=== PATIENT | female | born 1945 | race Caucasian/White ===

== ENCOUNTER → 2017-06-18 | Outpatient (CLI) | payer OTHER ==
[~2017-06-18] MED LIST: ALLO100T PO; ASPI81TA85 PO; HYDR12.56 PO; IBUPOTC PO; INVO100T PO; JANU100T PO; LISI5TAB PO; METF1000 PO; PREMARIN PO; PROBCAP4 PO; VITA10002 PO; VITA500047 PO; tylen; tylenol PO
[2017-06-18 13:01] LABS: URIC ACID 6.1 MG/DL (2.6-6.0)
== END ==
LOC: M WUC 10:32
PROVIDERS: ATTEND Nurse Practitioner Family
DX: E55.9 Vitamin D deficiency, unspecified (principal); M10.9 Gout, unspecified

== ENCOUNTER → 2017-11-10 | Outpatient (REF) | payer OTHER ==
[2017-11-10 14:11] LABS: APPEARANCE, URINE HAZY (CLEAR); BACTERIA, URINE AUTO 2+ (NEGATIVE); BILIRUBIN, URINE AUTO NEGATIVE (NEGATIVE); BLOOD, URINE BLOOD 1+ (NEGATIVE); COLOR, URINE YELLOW (YELLOW); GLUCOSE, URINE (UA) AUTO NEGATIVE (NEGATIVE); KETONE, URINE AUTO NEGATIVE (NEGATIVE); LEUKOCYTE ESTERASE, URINE AUTO 2+ (NEGATIVE); NITRITE, URINE AUTO NEGATIVE (NEGATIVE); PROTEIN, URINE AUTO NEGATIVE (NEGATIVE); RBC, URINE AUTO 6 /HPF (0-3); SPECIFIC GRAVITY URINE AUTO 1.011 (1.002-1.035); SQUAMOUS EPITHELIAL CELL UR AU 0 /HPF (0-6); UROBILINOGEN, URINE AUTO 0.2 mg/dL (0.0-2.0); WBC, URINE AUTO 74 /HPF (0-3)
== END ==
LOC: M LAB REF 13:07
DX: R39.89 Other symptoms and signs involving the genitourinary system (principal)
CPT/HCPCS: 81001

== ENCOUNTER → 2018-05-26 | Outpatient (CLI) | payer OTHER | LOC: M WHC 09:54 | DX: M81.0 Age-related osteoporosis without current pathological fracture (principal); Z78.0 Asymptomatic menopausal state | CPT/HCPCS: 77080 ==

== ENCOUNTER → 2019-07-21 | Outpatient (REF) | payer MEDICARE ==
[2019-07-21 11:56] LABS: BASO # 0.1 10^3/uL (0.0-0.2); BASO % 1.5 % (0.0-1.0); EOS # 0.6 10^3/uL (0.0-0.5); EOS % 8.5 % (0.0-3.0); HEMATOCRIT 45.6 % (36.0-47.0); HEMOGLOBIN 14.3 g/dl (12.0-15.5); LYMPH # 2.2 10^3/uL (1.5-5.0); MEAN CORPUSCULAR HEMOGLOBIN 29.8 pg (27.0-33.0); MEAN CORPUSCULAR HGB CONC 31.4 g/dl (32.0-36.5); MONO # 0.7 10^3/uL (0.0-0.8); NEUTROPHILS # 3.1 10^3/uL (1.5-8.5); NEUTROPHILS % 45.8 % (36.0-66.0); PLATELET COUNT, AUTOMATED 231 10^3/uL (150-450); WHITE BLOOD COUNT 6.7 10^3/uL (4.0-10.0)
[2019-07-21 12:40] LABS: ALBUMIN 3.8 GM/DL (3.2-5.2); ALT/SGPT 45 U/L (12-78); BILIRUBIN,TOTAL 0.4 MG/DL (0.2-1.0); BLOOD UREA NITROGEN 18 MG/DL (7-18); CARBON DIOXIDE LEVEL 30 MEQ/L (21-32); CHLORIDE LEVEL 104 MEQ/L (98-107); CHOLESTEROL LEVEL 178 MG/DL (<200); CHOLESTEROL RISK RATIO 4.684 (<5); FREE T4 1.01 NG/DL (0.76-1.46); GLOMERULAR FILTRATION RATE > 60.0 (>39); GLUCOSE, FASTING 134 MG/DL (70-100); HDL CHOLESTEROL 38 MG/DL (>40); LDL CHOLESTEROL 75 MG/DL (<100); NON-HDL-C 140 MG/DL; POTASSIUM SERUM 4.2 MEQ/L (3.5-5.1); SODIUM LEVEL 140 MEQ/L (136-145); TOTAL PROTEIN 7.7 GM/DL (6.4-8.2); TRIGLYCERIDES LEVEL 327 MG/DL (<150)
[2019-07-21 12:51] LABS: HEMOGLOBIN A1c 7.1 %
== END ==
LOC: M SFHCPLAZ 09:49
PROVIDERS: ATTEND Physician Assistant Medical
DX: E11.9 Type 2 diabetes mellitus without complications (principal); Z13.220 Encounter for screening for lipoid disorders; I10 Essential (primary) hypertension; E66.09 Other obesity due to excess calories
CPT/HCPCS: 36415; 80053; 80061; 83036; 84439; 84443; 85025; G0463

== ENCOUNTER → 2020-01-26 | Outpatient (REF) | payer MEDICARE ==
[2020-01-26 13:45] LABS: ALBUMIN 3.9 GM/DL (3.2-5.2); ALT/SGPT 41 U/L (12-78); BILIRUBIN,TOTAL 0.4 MG/DL (0.2-1.0); BLOOD UREA NITROGEN 20 MG/DL (7-18); CALCIUM LEVEL 9.2 MG/DL (8.8-10.2); CARBON DIOXIDE LEVEL 30 MEQ/L (21-32); CHLORIDE LEVEL 105 MEQ/L (98-107); CREATININE FOR GFR 0.89 MG/DL (0.55-1.30); GLOMERULAR FILTRATION RATE > 60.0 (>39); GLUCOSE, FASTING 91 MG/DL (70-100); POTASSIUM SERUM 4.8 MEQ/L (3.5-5.1); SODIUM LEVEL 141 MEQ/L (136-145); TOTAL PROTEIN 7.6 GM/DL (6.4-8.2); URIC ACID 4.9 MG/DL (2.6-6.0)
[2020-01-26 14:28] LABS: CREATININE, URINE 24.5 MG/DL; MALB URINE SIEMENS 11.7 MG/L; MAU/CREAT RATIO 47.7 MCG/MG (0.0-30.0)
[2020-01-26 14:30] LABS: HIV 1&2 SCREEN CENTAUR NEGATIVE (NEGATIVE)
[2020-01-26 14:56] LABS: CHLAMYDIA DNA AMPLIFICATION NEGATIVE (NEGATIVE); GC DNA AMPLIFICATION NEGATIVE (NEGATIVE)
[2020-01-26 15:54] LABS: HEMOGLOBIN A1c 7.6 %
== END ==
LOC: M SFHCPLAZ 11:25
PROVIDERS: ATTEND Physician Assistant
DX: E11.9 Type 2 diabetes mellitus without complications (principal); M10.9 Gout, unspecified; Z20.2 Contact with and (suspected) exposure to infections with a predominantly sexual mode of transmission; Z11.59 Encounter for screening for other viral diseases
CPT/HCPCS: 36415; 80053; 82043; 83036; 84550; 86780; 87389; 87661; G0472

== ENCOUNTER → 2020-02-06 | Outpatient (CLI) | payer MEDICARE ==
--- NOTE | 2020-02-07 04:24 | REP ---
Clinical: Family history of polycystic kidney disease. Technique: Real time giles scale ultrasound examination using curved array transducer. Findings: Bilateral kidneys are normal in contour, size, echogenicity, vascularity and reniform shape. No hydronephrosis, nephrolithiasis, polycystic changes, or mass lesion. Right kidney measures 11.9 x 6.2 x 4.3 cm (RI 0.65) without cystic changes. Left kidney measures 9.8 x 5.2 x 5.2 cm (RI 0.58) and includes 2.0 cm mid pole cortical simple cyst. Impression: 1. 2 cm solitary left renal cyst. 2. Otherwise unremarkable renal ultrasound.
== END ==
LOC: M PLAIMG 09:21
PROVIDERS: ATTEND Physician Assistant
DX: N28.1 Cyst of kidney, acquired (principal); Z82.71 Family history of polycystic kidney

== ENCOUNTER → 2020-08-27 | Outpatient (CLI) | payer MEDICARE ==
--- NOTE | 2020-08-27 12:24 | REP ---
INDICATION: LLE SWELLING. COMPARISON: None. TECHNIQUE: Multiple duplex ultrasound images of the left lower extremity deep veins. FINDINGS: The deep veins demonstrate normal compression, normal Doppler color flow and normal Doppler waveforms with respiration and augmentation multiple levels from the popliteal vein to the common femoral vein. IMPRESSION: There is no evidence of left lower extremity deep vein thrombus. <Electronically signed by Mathew Ramsay > 08/27/20 1616
== END ==
LOC: M RAD 11:25
PROVIDERS: ATTEND Physician Assistant
DX: M79.89 Other specified soft tissue disorders (principal)

== ENCOUNTER 2020-11-29 16:16 | Emergency (ER) | payer MEDICARE ==
[~2020-11-29] VITALS: Ht 167.6 cm; Wt 88.9 kg
--- NOTE | 2020-11-29 17:56 | REPVR ---
PROCEDURE INFORMATION: Exam: US Duplex Left Lower Extremity Veins, Limited Exam date and time: 11/29/2020 5:02 PM Age: 75 years old Clinical indication: Pain; Leg, upper; Left; Additional info: Left thigh pain and swelling, R/O dvt TECHNIQUE: Imaging protocol: Real-time Duplex ultrasound of the Left Lower Extremity with 2-D giles scale, color Doppler flow and spectral waveform analysis with image documentation. Limited exam focused on the left lower extremity veins. COMPARISON: US Duplex, Ext,LOWER veins,unilat 08/27/2020 11:46 AM FINDINGS: Left deep veins: Unremarkable. The common femoral, femoral, proximal profunda femoral and popliteal veins are patent without thrombus. Normal Doppler waveforms. Normal compressibility and/or augmentation response. Left superficial veins: Saphenofemoral junction is patent without thrombus. There is dilatation of the greater saphenous vein and reflux is demonstrated with Valsalva maneuver. There are collaterals left medial geniculate without thrombus. Soft tissues: Unremarkable. IMPRESSION: No evidence of deep vein thrombosis. There is dilatation of the greater saphenous vein and reflux is demonstrated with Valsalva maneuver. There are collaterals left medial geniculate without thrombus. Electronically signed by: Ronda Desir On 11/29/2020 17:56:48 PM
[2020-11-29 18:11] VITALS: BP 157/80
== END 2020-11-29 18:35 | disposition home or self-care (01) ==
LOC: M ED 16:16
DX: I83.813 Varicose veins of bilateral lower extremities with pain (principal); M19.90 Unspecified osteoarthritis, unspecified site; I10 Essential (primary) hypertension; E11.9 Type 2 diabetes mellitus without complications; M10.9 Gout, unspecified; Z88.0 Allergy status to penicillin; Z79.899 Other long term (current) drug therapy; Z79.82 Long term (current) use of aspirin; Z79.84 Long term (current) use of oral hypoglycemic drugs

== ENCOUNTER → 2021-02-25 | Outpatient (REF) | payer MEDICARE ==
[2021-02-25 16:42] LABS: HEMATOCRIT 43.8 % (36.0-47.0); HEMOGLOBIN 13.5 g/dl (12.0-15.5); MEAN CORPUSCULAR HGB CONC 30.8 g/dl (32.0-36.5); MEAN CORPUSCULAR VOLUME 90.7 fl (80.0-96.0); PLATELET COUNT, AUTOMATED 245 10^3/uL (150-450); RED BLOOD COUNT 4.83 10^6/uL (4.00-5.40); WHITE BLOOD COUNT 8.8 10^3/uL (4.0-10.0)
[2021-02-25 17:11] LABS: HEMOGLOBIN A1c 7.2 %
[2021-02-25 17:18] LABS: ALBUMIN 3.6 GM/DL (3.2-5.2); ALT/SGPT 31 U/L (12-78); BILIRUBIN,TOTAL 0.5 MG/DL (0.2-1.0); BLOOD UREA NITROGEN 25 MG/DL (7-18); CALCIUM LEVEL 9.3 MG/DL (8.8-10.2); CARBON DIOXIDE LEVEL 31 MEQ/L (21-32); CHLORIDE LEVEL 101 MEQ/L (98-107); CHOLESTEROL LEVEL 186 MG/DL (<200); CHOLESTEROL RISK RATIO 4.894 (<5); CREATININE FOR GFR 0.87 MG/DL (0.55-1.30); FREE T4 0.83 NG/DL (0.76-1.46); GLOMERULAR FILTRATION RATE > 60.0 (>39); GLUCOSE, FASTING 132 MG/DL (70-100); HDL CHOLESTEROL 38 MG/DL (>40); NON-HDL-C 148 MG/DL; POTASSIUM SERUM 4.3 MEQ/L (3.5-5.1); SODIUM LEVEL 140 MEQ/L (136-145); TOTAL PROTEIN 7.4 GM/DL (6.4-8.2); TRIGLYCERIDES LEVEL 430 MG/DL (<150)
[2021-02-25 17:21] LABS: VITAMIN B12 LEVEL 256 PG/ML
[2021-02-25 17:30] LABS: CREATININE, URINE 40.7 MG/DL; MALB URINE SIEMENS 8.2 MG/L; MAU/CREAT RATIO 20.1 MCG/MG (0.0-30.0)
== END ==
LOC: M SFHCPLAZ 13:46 → M SFHCADAM 13:50
PROVIDERS: ATTEND Physician Assistant
DX: E78.2 Mixed hyperlipidemia (principal); E11.9 Type 2 diabetes mellitus without complications; I10 Essential (primary) hypertension; R68.89 Other general symptoms and signs
CPT/HCPCS: 80053; 80061; 82043; 82607; 82746; 83036; 84439; 84443; 85027; G0463

== ENCOUNTER → 2021-03-12 | Outpatient (REF) | payer MEDICARE ==
[2021-03-12 14:22] LABS: BLOOD UREA NITROGEN 20 MG/DL (7-18); CALCIUM LEVEL 8.7 MG/DL (8.8-10.2); CARBON DIOXIDE LEVEL 30 MEQ/L (21-32); CHLORIDE LEVEL 99 MEQ/L (98-107); GLOMERULAR FILTRATION RATE > 60.0 (>39); GLUCOSE, FASTING 262 MG/DL (70-100); MAGNESIUM LEVEL 1.6 MG/DL (1.8-2.4); POTASSIUM SERUM 4.2 MEQ/L (3.5-5.1); SODIUM LEVEL 138 MEQ/L (136-145)
== END ==
LOC: M SFHCPLAZ 10:48
PROVIDERS: ATTEND Family Medicine
DX: R94.31 Abnormal electrocardiogram [ECG] [EKG] (principal); I10 Essential (primary) hypertension
CPT/HCPCS: 36415; 80048; 83735; 93005; G0463

== ENCOUNTER → 2021-03-18 | Outpatient (CLI) | payer MEDICARE ==
--- NOTE | 2021-03-18 12:54 | DEXAMM ---
INDICATION: Z13.820 SCREENING FOR OSTEOPOROSIS. COMPARISON: Comparison study May 26, 2018.. TECHNIQUE: Bone density was measured using dual-energy x-ray absorptionmetry (DEXA). FINDINGS: AP SPINE L1-L4 BMD 1.480 g/cm2 Young Adult T-Score 2.3 Age Matched Z-Score 4.1. LT FEMUR, TOTAL BMD 0.569 g/cm2 Young Adult T-Score -3.5 Age Matched Z-Score -1.7. LT NECK BMD 0.664 g/cm2 Young Adult T-Score -2.7 Age Matched Z-Score -0.7. RT FEMUR, TOTAL BMD 0.693 g/cm2 Young Adult T-Score -2.5 Age Matched Z-Score -0.7. RT NECK BMD 0.774 g/cm2 Young Adult T-Score -1.9 Age Matched Z-Score 0.1. IMPRESSION: There is normal bone density of the spine. There is osteoporosis of the left hip. There is low bone density of the right hip. The density of the spine has decreased 2.8% since the initial exam on May 26, 2018. The density of the left hip has decreased 21.4% since initial exam on May 26, 2018. The density of the right hip has decreased 10.6% since the initial exam on May 26, 2018. FOLLOW-UP: Recommendation for the next bone density exam: 2 years. <Electronically signed by John Thorne > 03/18/21 [id number]
--- NOTE | 2021-03-19 09:19 | REPMRS ---
Patient History The patient states she has not had a clinical breast exam in over a year. No known family history of cancer. Benign stereotactic core biopsy of the left breast, 2002. Patient states no breast complaints today. Patient has signed MRS History Sheet. Digital Woman Screen Mammo: March 18, 2021 - Exam #: [id number] Bilateral CC and MLO view(s) were taken. Technologist: Agustina Olivier, Technologist Prior study comparison: February 06, 2015, digital woman screen mammo performed at [facility]. January 13, 2007, bilateral mammogram performed at [facility]. FINDINGS: The breast tissue is heterogeneously dense. This may lower the sensitivity of mammography. Screening. Digital screening (2D) mammography was performed bilaterally in the CC and MLO projections. Additionally, breast tomosynthesis (3D mammography) was performed bilaterally in the CC and MLO projections. Todays exam was compared to the prior exam/exams. By history, the patient has no complaints of a palpable breast abnormality or other significant breast complaints. The breasts are unchanged in size and shape.Once again, dense heterogenous fibroglandular elements are seen bilaterally in a stable appearing pattern but to such a degree that the sensitivity of the mammogram in detecting cancer is decreased. There are no helena-soft tissue densities or spiculated masses. There is no internal architectural distortion.Calcifications are again seen in the breast/breasts. Some of these are in groups but no one group appears more suspicious than any other. There are no suspicious helena-calcific clusters. Skin thickening or nipple retraction is not present. IMPRESSION: BI-RADS Category 2- Benign Findings. There is no evidence of malignant alteration of the breasts. Followup examination recommended in one year. The Volpara volumetric breast density category is C, the breasts are heterogenously dense which may obscure small masses. This mammogram was read with the assistance of [employer]an FDA approved computer aided detection system for mammography. The lifetime Tyrer-Cuzick score is 2.5 % Due to the density of the breasts or Tyrer Cuzick score of 20% or greater, MRI/whole breast screening ultrasound is warranted. Negative x-ray reports should not delay surgical consultation if a dominant or clinically suspicious mass is present. Not all breast cancers can be identified by mammography. Therefore, we recommend that you continue to perform regular breast self-examination and physical examination and then promptly contact your physician of any concerns or changes. Adenosis and dense breasts may obscure an underlying neoplasm. Assessment: BI-RADS/ACR category 2 mammogram. Benign Findings. Recommendation Routine screening mammogram of both breasts in 1 year. Electronically Signed By: Vince Merritt DO 03/18/21 1048
== END ==
LOC: M WHC 09:17
PROVIDERS: ATTEND Physician Assistant
DX: Z12.31 Encounter for screening mammogram for malignant neoplasm of breast (principal); Z13.820 Encounter for screening for osteoporosis; M81.0 Age-related osteoporosis without current pathological fracture; M85.851 Other specified disorders of bone density and structure, right thigh

== ENCOUNTER → 2021-11-03 | Outpatient (REF) | payer MEDICARE ==
[2021-11-03 13:36] LABS: HEMOGLOBIN A1c 6.9 %
[2021-11-03 13:42] LABS: ALBUMIN 3.7 GM/DL (3.2-5.2); BILIRUBIN,TOTAL 0.6 MG/DL (0.2-1.0); CALCIUM LEVEL 9.2 MG/DL (8.8-10.2); CHOLESTEROL RISK RATIO 4.285 (<5); CREATININE FOR GFR 1.06 MG/DL (0.55-1.30); CREATININE, URINE 73.1 MG/DL; FREE T4 1.03 NG/DL (0.76-1.46); GLOMERULAR FILTRATION RATE 53.5 (>39); MAGNESIUM LEVEL 1.8 MG/DL (1.8-2.4); MALB URINE SIEMENS 10.1 MG/L; MAU/CREAT RATIO 13.8 MCG/MG (0.0-30.0); POTASSIUM SERUM 5.2 MEQ/L (3.5-5.1); THYROID STIMULATING HORMONE 3.95 uIU/ML (0.358-3.740); TOTAL PROTEIN 7.6 GM/DL (6.4-8.2); URIC ACID 7.7 MG/DL (2.6-6.0)
== END ==
LOC: M SFHCADAM 08:47
PROVIDERS: ATTEND Physician Assistant
DX: E11.9 Type 2 diabetes mellitus without complications (principal); I10 Essential (primary) hypertension; M10.9 Gout, unspecified; R42 Dizziness and giddiness; E78.2 Mixed hyperlipidemia

== ENCOUNTER → 2022-03-02 | Outpatient (REF) | payer MEDICARE ==
[2022-03-02 16:36] LABS: BASO # 0.1 10^3/uL (0.0-0.2); BASO % 1.3 % (0.0-1.0); EOS # 0.3 10^3/uL (0.0-0.5); EOS % 3.8 % (0.0-3.0); HEMATOCRIT 42.6 % (36.0-47.0); HEMOGLOBIN 13.4 g/dl (12.0-15.5); LYMPH % 28.5 % (24.0-44.0); MEAN CORPUSCULAR HEMOGLOBIN 28.3 pg (27.0-33.0); MEAN CORPUSCULAR HGB CONC 31.5 g/dl (32.0-36.5); MEAN CORPUSCULAR VOLUME 90.1 fl (80.0-96.0); MONO # 0.6 10^3/uL (0.0-0.8); MONO % 8.5 % (2.0-8.0); NEUTROPHILS # 4.1 10^3/uL (1.5-8.5); NEUTROPHILS % 57.1 % (36.0-66.0); PLATELET COUNT, AUTOMATED 232 10^3/uL (150-450); RED BLOOD COUNT 4.73 10^6/uL (4.00-5.40); WHITE BLOOD COUNT 7.2 10^3/uL (4.0-10.0)
[2022-03-02 17:15] LABS: C REACTIVE PROTEIN QUANTITATIV 1.43 MG/DL (0.00-0.30); FREE T4 1.06 NG/DL (0.76-1.46); RHEUMATOID FACTOR QUANT < 10.0 IU/ML (<15.0)
[2022-03-02 17:37] LABS: ERYTHROCYTE SEDIMENTATION RATE QNS mm/hr (0-30)
[2022-03-04 19:07] LABS: ANA (HEP2) Negative (.)
== END ==
LOC: M SFHCADAM 14:18
PROVIDERS: ATTEND Physician Assistant
DX: R79.89 Other specified abnormal findings of blood chemistry (principal); R19.5 Other fecal abnormalities; G89.29 Other chronic pain; W57.XXXA Bitten or stung by nonvenomous insect and other nonvenomous arthropods, initial encounter; Z79.899 Other long term (current) drug therapy

== ENCOUNTER → 2022-03-02 | Outpatient (CLI) | payer MEDICARE | LOC: M ADAMS 14:20 | PROVIDERS: ATTEND Physician Assistant | DX: M19.041 Primary osteoarthritis, right hand (principal) ==

== ENCOUNTER → 2022-03-10 | Outpatient (REF) | payer MEDICARE | LOC: M SFHCPLAZ 12:31 | PROVIDERS: ATTEND Physician Assistant | DX: R19.5 Other fecal abnormalities (principal) ==

== ENCOUNTER → 2022-06-23 | Outpatient (CLI) | payer MEDICARE | LOC: M SOG 13:16 | PROVIDERS: ATTEND Physician Assistant | DX: M19.041 Primary osteoarthritis, right hand (principal); M19.042 Primary osteoarthritis, left hand ==

== ENCOUNTER → 2022-10-09 | Outpatient (REF) | payer MEDICARE ==
[2022-10-09 15:06] LABS: ALBUMIN 3.6 G/DL (3.2-5.2); ALKALINE PHOSPHATASE 78 U/L (46-116); ALT/SGPT 22 U/L (7.0-40); AST/SGOT 30 U/L (<34); BILIRUBIN,TOTAL 0.6 MG/DL (0.3-1.2); BLOOD UREA NITROGEN 21 MG/DL (9-23); CALCIUM LEVEL 9.2 MG/DL (8.3-10.6); CARBON DIOXIDE LEVEL 31 MMOL/L (20-31); CHLORIDE LEVEL 101 MMOL/L (98-107); CHOLESTEROL LEVEL 171 MG/DL (<200); CHOLESTEROL RISK RATIO 4.26 (<5); CREATININE FOR GFR 0.63 MG/DL (0.55-1.30); GLOMERULAR FILTRATION RATE > 60.0 (>39); GLUCOSE, FASTING 165 MG/DL (74-106); HDL CHOLESTEROL 40.1 MG/DL (>40); LDL CHOLESTEROL 84.1 MG/DL (<100); NON-HDL-C 131 MG/DL; POTASSIUM SERUM 4.4 MMOL/L (3.5-5.1); SODIUM LEVEL 139 MMOL/L (136-145); TOTAL PROTEIN 7.2 G/DL (5.7-8.2); TRIGLYCERIDES LEVEL 234 MG/DL (<150)
[2022-10-09 15:07] LABS: BASO # 0.1 10^3/uL (0.0-0.2); BASO % 1.1 % (0.0-1.0); EOS # 0.3 10^3/uL (0.0-0.5); EOS % 3.9 % (0.0-3.0); HEMATOCRIT 43.2 % (36.0-47.0); HEMOGLOBIN 13.4 g/dl (12.0-15.5); LYMPH # 1.9 10^3/uL (1.5-5.0); LYMPH % 26.3 % (24.0-44.0); MEAN CORPUSCULAR HEMOGLOBIN 28.8 pg (27.0-33.0); MEAN CORPUSCULAR VOLUME 92.9 fl (80.0-96.0); MONO # 0.8 10^3/uL (0.0-0.8); MONO % 10.7 % (2.0-8.0); NEUTROPHILS # 4.1 10^3/uL (1.5-8.5); NEUTROPHILS % 56.9 % (36.0-66.0); PLATELET COUNT, AUTOMATED 222 10^3/uL (150-450); RED BLOOD COUNT 4.65 10^6/uL (4.00-5.40); TOTAL 25(OH) VITAMIN D 32.2 NG/ML (20.0-100.0); WHITE BLOOD COUNT 7.2 10^3/uL (4.0-10.0)
[2022-10-09 15:08] LABS: VITAMIN B12 LEVEL 307 PG/ML (211-911)
[2022-10-09 15:11] LABS: URIC ACID 7.9 MG/DL (3.1-7.8)
[2022-10-09 15:33] LABS: CREATININE, URINE 58.4 MG/DL
[2022-10-09 15:34] LABS: MAU/CREAT RATIO 54.7 MCG/MG (0.0-30.0)
[2022-10-09 15:39] LABS: HEMOGLOBIN A1c 7.2 % (4.0-6.0)
== END ==
LOC: M SFHCADAM 09:02
PROVIDERS: ATTEND Physician Assistant
DX: E78.2 Mixed hyperlipidemia (principal); E11.9 Type 2 diabetes mellitus without complications; I10 Essential (primary) hypertension; M10.9 Gout, unspecified; K21.9 Gastro-esophageal reflux disease without esophagitis; D12.6 Benign neoplasm of colon, unspecified; Z79.899 Other long term (current) drug therapy

== ENCOUNTER → 2022-11-13 | Outpatient (CLI) | payer MEDICARE | LOC: M ADAMS 08:45 | PROVIDERS: ATTEND Physician Assistant | DX: M19.041 Primary osteoarthritis, right hand (principal); M19.042 Primary osteoarthritis, left hand ==

== ENCOUNTER → 2023-04-06 | Outpatient (REF) | payer MEDICARE | LOC: M SFHCADAM 13:02 | PROVIDERS: ATTEND Physician Assistant Medical | DX: R19.7 Diarrhea, unspecified (principal) ==

== ENCOUNTER → 2023-04-27 | Outpatient (CLI) | payer MEDICARE | LOC: M LAB 09:09 → M RAD 09:09 | PROVIDERS: ATTEND Nurse Practitioner Family | DX: M54.50 Low back pain, unspecified (principal) ==

== ENCOUNTER → 2023-04-27 | Outpatient (CLI) | payer MEDICARE | LOC: M PAIN 08:00 | PROVIDERS: ATTEND Nurse Practitioner Family | DX: M79.10 Myalgia, unspecified site (principal); M54.50 Low back pain, unspecified; G89.29 Other chronic pain; E11.9 Type 2 diabetes mellitus without complications; I10 Essential (primary) hypertension; I25.10 Atherosclerotic heart disease of native coronary artery without angina pectoris; E78.5 Hyperlipidemia, unspecified; I87.2 Venous insufficiency (chronic) (peripheral); M81.0 Age-related osteoporosis without current pathological fracture; K22.70 Barrett's esophagus without dysplasia; M47.817 Spondylosis without myelopathy or radiculopathy, lumbosacral region; M48.07 Spinal stenosis, lumbosacral region; M15.9 Polyosteoarthritis, unspecified; M10.9 Gout, unspecified; Z87.891 Personal history of nicotine dependence; Z79.84 Long term (current) use of oral hypoglycemic drugs; Z79.82 Long term (current) use of aspirin; Z79.1 Long term (current) use of non-steroidal anti-inflammatories (NSAID); Z79.899 Other long term (current) drug therapy; Z88.0 Allergy status to penicillin; Z88.8 Allergy status to other drugs, medicaments and biological substances | CPT/HCPCS: 72110; G0463 ==

== ENCOUNTER → 2023-06-07 | Outpatient (REF) | payer MEDICARE ==
[2023-06-07 13:53] LABS: BASO # 0.1 10^3/uL (0.0-0.2); BASO % 1.3 % (0.0-1.0); EOS # 0.2 10^3/uL (0.0-0.5); EOS % 3.2 % (0.0-3.0); HEMATOCRIT 43.5 % (36.0-47.0); HEMOGLOBIN 13.7 g/dl (12.0-15.5); LYMPH # 2.1 10^3/uL (1.5-5.0); LYMPH % 29.4 % (24.0-44.0); MEAN CORPUSCULAR HGB CONC 31.5 g/dl (32.0-36.5); MONO # 0.7 10^3/uL (0.0-0.8); MONO % 9.6 % (2.0-8.0); NEUTROPHILS # 3.9 10^3/uL (1.5-8.5); NEUTROPHILS % 55.8 % (36.0-66.0); PLATELET COUNT, AUTOMATED 210 10^3/uL (150-450); RED BLOOD COUNT 4.73 10^6/uL (4.00-5.40)
[2023-06-07 14:23] LABS: BLOOD UREA NITROGEN 21 MG/DL (9-23); CALCIUM LEVEL 8.9 MG/DL (8.3-10.6); CARBON DIOXIDE LEVEL 30 MMOL/L (20-31); CHLORIDE LEVEL 100 MMOL/L (98-107); CHOLESTEROL LEVEL 173 MG/DL (<200); CHOLESTEROL RISK RATIO 4.28 (<5); CREATININE FOR GFR 0.93 MG/DL (0.55-1.30); GLOMERULAR FILTRATION RATE > 60.0 (>39); GLUCOSE, FASTING 115 MG/DL (74-106); HDL CHOLESTEROL 40.4 MG/DL (>40); LDL CHOLESTEROL 81.6 MG/DL (<100); NON-HDL-C 132.6 MG/DL; POTASSIUM SERUM 4.6 MMOL/L (3.5-5.1); SODIUM LEVEL 138 MMOL/L (136-145); TRIGLYCERIDES LEVEL 255 MG/DL (<150)
[2023-06-07 14:25] LABS: FREE T4 1.15 NG/DL (0.89-1.76); THYROID STIMULATING HORMONE 4.047 uIU/ML (0.55-4.78)
[2023-06-07 15:11] LABS: HEMOGLOBIN A1c 6.9 % (4.0-6.0)
== END ==
LOC: M SFHCADAM 08:59
PROVIDERS: ATTEND Physician Assistant
DX: E11.9 Type 2 diabetes mellitus without complications (principal); I25.10 Atherosclerotic heart disease of native coronary artery without angina pectoris

== ENCOUNTER → 2023-06-30 | Outpatient (CLI) | payer MEDICARE | LOC: M ADAMS 15:16 | PROVIDERS: ATTEND Student in an Organized Health Care Education/Training Program | DX: M46.1 Sacroiliitis, not elsewhere classified (principal); M47.816 Spondylosis without myelopathy or radiculopathy, lumbar region ==

== ENCOUNTER → 2023-10-06 | Outpatient (REF) | payer MEDICARE ==
[2023-10-06 13:53] LABS: BASO # 0.1 10^3/uL (0.0-0.2); BASO % 1.1 % (0.0-1.0); EOS # 0.4 10^3/uL (0.0-0.5); EOS % 3.5 % (0.0-3.0); HEMATOCRIT 43.7 % (36.0-47.0); HEMOGLOBIN 13.7 g/dl (12.0-15.5); LYMPH # 2.5 10^3/uL (1.5-5.0); MEAN CORPUSCULAR HEMOGLOBIN 29.5 pg (27.0-33.0); MEAN CORPUSCULAR HGB CONC 31.4 g/dl (32.0-36.5); MONO # 0.9 10^3/uL (0.0-0.8); MONO % 8.3 % (2.0-8.0); NEUTROPHILS # 6.8 10^3/uL (1.5-8.5); PLATELET COUNT, AUTOMATED 374 10^3/uL (150-450); RED BLOOD COUNT 4.65 10^6/uL (4.00-5.40); WHITE BLOOD COUNT 10.8 10^3/uL (4.0-10.0)
[2023-10-06 14:07] LABS: BLOOD UREA NITROGEN 27 MG/DL (9-23); CALCIUM LEVEL 8.9 MG/DL (8.3-10.6); CARBON DIOXIDE LEVEL 31 MMOL/L (20-31); CHLORIDE LEVEL 100 MMOL/L (98-107); CREATININE FOR GFR 0.76 MG/DL (0.55-1.30); GLOMERULAR FILTRATION RATE > 60.0 (>39); GLUCOSE, FASTING 158 MG/DL (74-106); POTASSIUM SERUM 4.2 MMOL/L (3.5-5.1); SODIUM LEVEL 136 MMOL/L (136-145)
== END ==
LOC: M SFHCADAM 09:17
PROVIDERS: ATTEND Physician Assistant
DX: I50.21 Acute systolic (congestive) heart failure (principal)

== ENCOUNTER → 2023-10-06 | Outpatient (CLI) | payer MEDICARE | LOC: M ADAMS 09:41 | PROVIDERS: ATTEND Physician Assistant | DX: I50.21 Acute systolic (congestive) heart failure (principal) ==

== ENCOUNTER → 2023-10-22 | Outpatient (CLI) | payer MEDICARE | LOC: M ADAMS 09:22 | PROVIDERS: ATTEND Physician Assistant | DX: I50.21 Acute systolic (congestive) heart failure (principal); I51.7 Cardiomegaly; J81.0 Acute pulmonary edema ==

== ENCOUNTER → 2023-10-27 | Outpatient (CLI) | payer MEDICARE | LOC: M ADAMS 10:25 | PROVIDERS: ATTEND Physician Assistant | DX: I11.0 Hypertensive heart disease with heart failure (principal) ==

== ENCOUNTER → 2023-10-27 | Outpatient (REF) | payer MEDICARE ==
[2023-10-27 14:39] LABS: BLOOD UREA NITROGEN 25 MG/DL (9-23); CALCIUM LEVEL 7.8 MG/DL (8.3-10.6); CARBON DIOXIDE LEVEL 34 MMOL/L (20-31); CHLORIDE LEVEL 99 MMOL/L (98-107); CREATININE FOR GFR 0.78 MG/DL (0.55-1.30); GLOMERULAR FILTRATION RATE > 60.0 (>39); GLUCOSE, FASTING 148 MG/DL (74-106); POTASSIUM SERUM 4.1 MMOL/L (3.5-5.1); SODIUM LEVEL 137 MMOL/L (136-145)
== END ==
LOC: M SFHCADAM 10:16
PROVIDERS: ATTEND Physician Assistant
DX: I11.0 Hypertensive heart disease with heart failure (principal); I50.21 Acute systolic (congestive) heart failure

== ENCOUNTER → 2023-11-04 | Outpatient (REF) | payer MEDICARE ==
[2023-11-04 14:22] LABS: BLOOD UREA NITROGEN 19 MG/DL (9-23); CALCIUM LEVEL 8.4 MG/DL (8.3-10.6); CARBON DIOXIDE LEVEL 35 MMOL/L (20-31); CHLORIDE LEVEL 101 MMOL/L (98-107); CHOLESTEROL LEVEL 150 MG/DL (<200); CHOLESTEROL RISK RATIO 4.33 (<5); CREATININE FOR GFR 0.75 MG/DL (0.55-1.30); GLOMERULAR FILTRATION RATE > 60.0 (>39); GLUCOSE, FASTING 175 MG/DL (74-106); HDL CHOLESTEROL 34.6 MG/DL (>40); LDL CHOLESTEROL 80.6 MG/DL (<100); NON-HDL-C 115.4 MG/DL; POTASSIUM SERUM 4.4 MMOL/L (3.5-5.1); SODIUM LEVEL 139 MMOL/L (136-145); TRIGLYCERIDES LEVEL 174 MG/DL (<150)
[2023-11-04 14:36] LABS: HEMOGLOBIN A1c 7.8 % (4.0-6.0)
== END ==
LOC: M SFHCADAM 07:51
PROVIDERS: ATTEND Physician Assistant
DX: E11.9 Type 2 diabetes mellitus without complications (principal); I25.10 Atherosclerotic heart disease of native coronary artery without angina pectoris; I10 Essential (primary) hypertension

== ENCOUNTER → 2024-01-14 | Outpatient (REF) | payer MEDICARE | LOC: M SFHCADAM 14:52 | PROVIDERS: ATTEND Physician Assistant | DX: J02.9 Acute pharyngitis, unspecified (principal) ==

== ENCOUNTER → 2024-02-17 | Outpatient (REF) | payer MEDICARE ==
[2024-02-17 15:18] LABS: HEMOGLOBIN A1c 6.8 % (4.0-6.0)
[2024-02-17 15:28] LABS: BLOOD UREA NITROGEN 24 MG/DL (9-23); CALCIUM LEVEL 8.8 MG/DL (8.3-10.6); CARBON DIOXIDE LEVEL 31 MMOL/L (20-31); CHLORIDE LEVEL 106 MMOL/L (98-107); CREATININE FOR GFR 0.74 MG/DL (0.55-1.30); GLOMERULAR FILTRATION RATE > 60.0 (>39); GLUCOSE, FASTING 133 MG/DL (74-106); POTASSIUM SERUM 5.1 MMOL/L (3.5-5.1); SODIUM LEVEL 142 MMOL/L (136-145)
== END ==
LOC: M SFHCADAM 10:08
PROVIDERS: ATTEND Physician Assistant
DX: E11.9 Type 2 diabetes mellitus without complications (principal)

== ENCOUNTER → 2024-06-21 | Outpatient (REF) | payer MEDICARE ==
[2024-06-21 12:40] LABS: BASO # 0.1 10^3/uL (0.0-0.2); BASO % 1.4 % (0.0-1.0); EOS # 0.3 10^3/uL (0.0-0.5); EOS % 3.4 % (0.0-3.0); HEMATOCRIT 43.5 % (36.0-47.0); HEMOGLOBIN 13.5 g/dl (12.0-15.5); LYMPH # 1.8 10^3/uL (1.5-5.0); LYMPH % 24.1 % (24.0-44.0); MEAN CORPUSCULAR HEMOGLOBIN 29.4 pg (27.0-33.0); MEAN CORPUSCULAR VOLUME 94.8 fl (80.0-96.0); MONO # 0.8 10^3/uL (0.0-0.8); MONO % 10.2 % (2.0-8.0); NEUTROPHILS # 4.4 10^3/uL (1.5-8.5); NEUTROPHILS % 60.2 % (36.0-66.0); PLATELET COUNT, AUTOMATED 224 10^3/uL (150-450); RED BLOOD COUNT 4.59 10^6/uL (4.00-5.40); WHITE BLOOD COUNT 7.3 10^3/uL (4.0-10.0)
[2024-06-21 12:47] LABS: ALBUMIN 3.8 G/DL (3.2-5.2); ALKALINE PHOSPHATASE 98 U/L (46-116); ALT/SGPT 16 U/L (7.0-40); AST/SGOT 18 U/L (<34); BILIRUBIN,TOTAL 0.7 MG/DL (0.3-1.2); BLOOD UREA NITROGEN 23 MG/DL (9-23); CALCIUM LEVEL 9.8 MG/DL (8.3-10.6); CARBON DIOXIDE LEVEL 31 MMOL/L (20-31); CHLORIDE LEVEL 104 MMOL/L (98-107); CHOLESTEROL LEVEL 175 MG/DL (<200); CHOLESTEROL RISK RATIO 4.97 (<5); CREATININE FOR GFR 0.89 MG/DL (0.55-1.30); GLOMERULAR FILTRATION RATE > 60.0 (>39); GLUCOSE, FASTING 111 MG/DL (74-106); HDL CHOLESTEROL 35.2 MG/DL (>40); LDL CHOLESTEROL 79.2 MG/DL (<100); NON-HDL-C 139.8 MG/DL; POTASSIUM SERUM 4.2 MMOL/L (3.5-5.1); SODIUM LEVEL 141 MMOL/L (136-145); TOTAL PROTEIN 7.3 G/DL (5.7-8.2); TRIGLYCERIDES LEVEL 303 MG/DL (<150)
[2024-06-21 12:48] LABS: FREE T4 1.17 NG/DL (0.89-1.76); THYROID STIMULATING HORMONE 2.794 uIU/ML (0.55-4.78); TOTAL 25(OH) VITAMIN D 23.4 NG/ML (20.0-100.0)
[2024-06-21 13:22] LABS: HEMOGLOBIN A1c 6.2 % (4.0-6.0)
== END ==
LOC: M SFHCADAM 10:20
PROVIDERS: ATTEND Physician Assistant
DX: M81.0 Age-related osteoporosis without current pathological fracture (principal); E11.9 Type 2 diabetes mellitus without complications; I11.0 Hypertensive heart disease with heart failure; I48.0 Paroxysmal atrial fibrillation

== ENCOUNTER → 2024-06-21 | Outpatient (CLI) | payer MEDICARE | LOC: M ADAMS 10:22 | PROVIDERS: ATTEND Physician Assistant | DX: I11.0 Hypertensive heart disease with heart failure (principal) ==

== ENCOUNTER → 2024-10-09 | Outpatient (REF) | payer MEDICARE | LOC: M LAB REF 16:12 | PROVIDERS: ATTEND Internal Medicine | DX: M10.9 Gout, unspecified (principal) ==

== ENCOUNTER → 2024-10-24 | Outpatient (CLI) | payer MEDICARE | LOC: M WHC 08:43 | PROVIDERS: ATTEND Internal Medicine | DX: M81.0 Age-related osteoporosis without current pathological fracture (principal) ==

== ENCOUNTER → 2024-11-21 | Outpatient (REF) | payer MEDICARE | LOC: M LAB REF 12:26 | PROVIDERS: ATTEND Internal Medicine | DX: I50.9 Heart failure, unspecified (principal); R06.02 Shortness of breath; I48.0 Paroxysmal atrial fibrillation ==

== ENCOUNTER → 2025-04-30 | Outpatient (REF) | payer MEDICARE | LOC: M LAB REF 17:09 | PROVIDERS: ATTEND Nurse Practitioner Adult Health | DX: N39.0 Urinary tract infection, site not specified (principal) ==

== ENCOUNTER → 2025-07-03 | Outpatient (REF) | payer MEDICARE | LOC: M LAB REF 13:45 | PROVIDERS: ATTEND Internal Medicine | DX: G31.84 Mild cognitive impairment of uncertain or unknown etiology (principal) ==